=== PATIENT | female | born 1985 | race Caucasian/White ===

== ENCOUNTER 2016-12-24 13:41 | Emergency (ER) | payer OTHER ==
[~2016-12-24] VITALS: Ht 165.1 cm; Wt 55.0 kg
[~2016-12-24 13:41] MED LIST: HYDR-3498 PO; NAPR-260 PO
[2016-12-24 13:47] VITALS: Ht 165.1 cm; Wt 55.0 kg
[2016-12-24] MEDS ORDERED: KETOROLAC 30 MG INJ IM STA (14:19)
--- NOTE | 2016-12-24 14:38 | ERD ---
ER Documentation Chief Complaint Date/Time DATE: 12/24/16 TIME: 14:18 Chief Complaint RIGHT ANKLE PAIN X 1 MONTH HPI 31-year-old female presents to the emergency department for right ankle/ inferior foot pain for about a month. Accidentally rolled her right ankle a couple of times in the past month. Pain is worse in movement. Denies headache, loss of consciousness, dizziness, blurry vision, changes in vision, photophobia, facial pain, ear pain, throat pain, difficulty swallowing, neck pain, shoulder pain, chest pain, cough, hemoptysis, abdominal pain, back pain, loss of appetite, nausea, vomiting, hematochezia, diarrhea, constipation, urinary symptoms, , the possibility of being , bladder and bowel incontinences, numbness or tingling sensation, recent travel, recent exposure to illness, recent antibiotic use in the last 3 months, fever, chills. Allergy: NKDA. PMH: Talus dislocation. Family medical history: A1 LMP: "Today's my last menstrual period." Medications: Denies. Surgery: Denies. 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 Denies smoking, use of alcohol, use of illegal drugs. ROS All systems reviewed and are negative except as per history of present illness. Medications Home Meds Active Scripts Hydrocodone Bit-Acetaminophen* (Weston*) 5-325 Mg Tab, 1 TAB PO Q6 Y for PAIN, # 10 TAB Prov:MAMIRICA DO 10/20/15 Naproxen* (Naprosyn*) 500 Mg Tablet, 500 MG PO BID Y for PAIN AND/OR INFLAMMATION, #30 TAB Prov:MAMI,[facility] 10/20/15 Allergies Allergies: Coded Allergies: No Known Allergy (Unverified , 12/24/16) PMhx/Soc Medical and Surgical Hx: pt denies Medical Hx, pt denies Surgical Hx Hx Alcohol Use: Yes Hx Substance Use: No Hx Tobacco Use: No Smoking Status: Never smoker Physical Exam Vitals Vital Signs Date Time Temp Pulse Resp B/P Pulse Ox O2 Delivery O2 Flow Rate FiO2 12/24/16 13:47 98.8 82 16 106/79 99 Physical Exam CONSTITUTIONAL: Well-appearing; well-nourished; in no apparent distress. HEAD: Normocephalic; atraumatic. EYES: Conjunctiva clear, sclera non-icteric, EOM intact. PERRL Ears: Hearing intact. EACs clear, TMs non-bulging, non-inflamed, translucent & mobile, ossicles normal appearance, No obstructions, no erythema, no discharges Nose: No obstructions. No polyps. No external lesions. Mucosa non-inflamed. No external lesions, septum and turbinates normal. No rhinorrhea. No discharges. Frontal sinus is non-tender to palpation. Maxillary sinus is non-tender to palpation. MOUTH: Moist mucous membranes, no lesion, no obstructions, no vesicles, no thrush, patent airway Throat: Uvula in midline. Right tonsil is +1 with no erythema, no exudate. Left tonsil is +1 with no erythema, no exudate. Tolerating secretions well. Good gag reflex. Patent airway. Neck: Supple, without lesions, bruits, or adenopathy. No mass. Thyroid non- enlarged and non-tender to palpation. CHEST: Symmetrical chest. Respirations even and not labored. No retractions noted. CARDIOVASCULAR: Normal S1, S2. RRR. No murmurs, gallops. RESPIRATORY: Normal chest excursion with respiration; breath sounds clear and equal bilaterally; no wheezes, rhonchi, or rales. Breathing even and unlabored. Speaking in clear, full, and complete sentences w/ ease. ABDOMEN: Normal bowel sounds normal. Soft, round, non-distended, non-guarding, no tenderness, no rebound, no organomegaly, no masses, no pulsating abdominal mass. No hernia. No peritoneal signs. : No CVA tenderness. BACK: Symmetrical shoulder. Spine is midline without deformity, tenderness. No evidence of trauma or deformity. PELVIS: Stable pelvis. No evidence of trauma or deformity. MUSCULOSKELETAL: Normal gait and station. No misalignment, asymmetry, crepitation, defects, tenderness, masses, effusions, decreased range of motion, instability, atrophy or abnormal strength or tone in the head, neck, spine, ribs , pelvis or extremities except tenderness to anterior right foot to palpation. Also tenderness to right medial and lateral ankle to palpation. No obvious deformity and swelling/discoloration to right ankle/foot. Right pedal pulse is within normal limits. Circulation of the right foot is unremarkable. Right knee is unremarkable. Bilateral hips are stable and unremarkable. Left lower extremities unremarkable. C-spine/T-spine/L-spine has no swelling/tenderness/ discoloration with good and full range of motion without limitation/discomfort. Patient denies back pain. No calf tenderness. No neurovascular deficits. NEUROVASCULAR: Distal pulses are present. Pedal pulse are present, equal, and normal. Capillary refills are < 2 seconds. NEUROLOGIC: Alert and oriented x4. Speaks full and clear sentences. Cranial Nerves II-XII normal. Sensation to pain, touch, and proprioception normal. Grossly unremarkable. No neurologic deficits. Romberg test is negative. PSYCHOLOGICAL: The patients mood and manner are appropriate. No hallucinations , delusions. Not SI. Not HI. Has the capacity to decide for self SKIN: Normal for age and ethnicity; warm; dry; good turgor; no apparent lesions or exudates. No rashes, hives, discoloration. Intact. Results 24 hrs Current Medications Medications (Trade) Dose Ordered Sig/Allie Route PRN Reason Start Time Stop Time Status Last Admin Dose Admin Ketorolac Tromethamine (Toradol) 30 mg ONCE STAT IM 12/24/16 14:19 12/24/16 14:21 DC 12/24/16 14:30 Procedures/MDM Examination: Please see physical examination. Disease process, medical treatment was explained to the patient and family member. They verbalized understanding and agreed with the diagnostic tests, medical treatment, and follow-up care. Radiology: X-ray of the right foot Impression: Unremarkable right foot series. X-ray of the right ankle Impression: Unremarkable right ankle series. POC urine : Negative. Treatment: Toradol IM. Re-evaluation: Alert oriented 4. Speaks full and clear sentences. No neurological deficits. Denies headache, dizziness, blurry vision, neck pain, shoulder pain, chest pain, back pain, abdominal pain, nausea. Good and full range of motion of neck and spine. Unremarkable bilateral upper and left lower extremity. Good and full range of motion of right ankle/right/right foot. Has good pedal pulse to right foot. Ambulatory with steady gait. No neurovascular deficits. Consultation: None. Differential diagnosis: Fracture versus dislocation versus contusion versus sprain Medical decision makin-year-old female presents to the emergency department for right ankle/inferior foot pain for about a month. Accidentally rolled her right ankle a couple of times in the past month. Pain is worse in movement. Patient's complaint, patient's history about her complaint, my physical findings, diagnostic test results, my reevaluation are consistent my final diagnosis of foot pain, ankle pain, plantar fasciitis Medications prescribed are the following: Motrin. Instructed to use arch support. Verbalized understanding. Patient and family member are made aware of the side effects and adverse reactions of the medications prescribed. Instructed on when to seek emergent and medical attention in case allergic/anaphylactic reactions or severe side effects and or adverse reactions to medications. Patient and family member verbalized understanding. Patient instructed Instructed to follow-up with his PCP in 24-48 hours. Instructed to Call 911 for chest pain, shortness of breath. Advised to come back here in ED as soon as possible for severity of symptoms which includes but not limited to: any new symptoms; shortness of breath/difficulty of breathing; cardiovascular changes; severe gastrointestinal symptoms; signs and symptoms of bleeding and or infection; signs of compartment syndrome/neurovascular changes; neurological changes/deficits. Patient and family member verbalized understanding. Upon discharge, patient is alert and oriented x 4, speaks full and clear sentences, denies pain, has no neurological deficits, has no neurovascular deficits, difficulty of breathing. Breathing even and unlabored. Lung sounds are clear to auscultation. Not in distress. Appears comfortable. Ambulatory with steady gait. Appears satisfied with care provided here in ED. Hemodynamically stable on discharge. Departure Diagnosis: Primary Impression: Ankle pain Additional Impressions: Ankle injury Foot pain Foot injury Plantar fasciitis Condition: Good Additional Instructions: Instructed to follow-up with his PCP in 24-48 hours. Instructed to Call 911 for chest pain, shortness of breath. Advised to come back here in ED as soon as possible for severity of symptoms which includes but not limited to: any new symptoms; shortness of breath/difficulty of breathing; cardiovascular changes; severe gastrointestinal symptoms; signs and symptoms of bleeding and or infection; signs of compartment syndrome/neurovascular changes; neurological changes/deficits. Patient and family member verbalized understanding. MECHE WETZEL Dec 24, 2016 14:38
--- NOTE | 2016-12-24 15:16 | RADRPT ---
PROCEDURE: Right ankle series. CLINICAL INDICATION: Right ankle pain TECHNIQUE: Three views of the right ankle are available for review COMPARISON: None available FINDINGS: There is normal mineralization and alignment of the bones of the right ankle. No acute fracture or dislocation is seen. Joint spaces are well maintained. No osteophytes or erosions are identified. No joint effusion is identified. The soft tissues are within normal limits. IMPRESSION: 1. Unremarkable right ankle x-ray series. RPTAT: KK .Antony Wharton MD, MD Date Time Electronically viewed and signed by .Antony Wharton MD, on 12/24/2016 15:16 .B/
--- NOTE | 2016-12-24 15:16 | RADRPT ---
PROCEDURE: Right foot series. CLINICAL INDICATION: Right foot pain TECHNIQUE: Three views of the right foot are available for review. COMPARISON: None available FINDINGS: There is normal mineralization and alignment of the bones of the right foot. Lisfranc's joint appea rs intact. No acute fracture or dislocation is seen. The soft tissues are unremarkable. IMPRESSION: 1. Unremarkable right foot series. RPTAT: KK .Antony Wharton MD, MD Date Time Electronically viewed and signed by .Antony Wharton MD, on 12/24/2016 15:15 .B/
[2016-12-24] MEDS ORDERED: IBUP800T25 PO (15:32)
== END 2016-12-24 15:44 | disposition home or self-care (01) ==
LOC: FTE 13:41
DX: S99.911A Unspecified injury of right ankle, initial encounter (principal); S99.921A Unspecified injury of right foot, initial encounter; M72.2 Plantar fascial fibromatosis; X50.9XXA Other and unspecified overexertion or strenuous movements or postures, initial encounter; Y92.9 Unspecified place or not applicable
CPT/HCPCS: 73610; 73630; J1885; 96372